=== PATIENT | male | born 1960 | race Hispanic/Latino ===

== ENCOUNTER 2021-07-12 06:07 | Inpatient (IN) | payer SELFPAY ==
[2021-07-12 07:45] LABS: Basophils % (Auto) 0.1 % (0.0-1.8); Hematocrit 22.7 % (35.5-45.6); Hemoglobin 7.9 gm/dl (11.8-15.2); Lymphocytes # (Auto) 4.1 K/mm3 (1.2-5.4); Lymphocytes % (Auto) 23.9 % (13.4-35.0); Mean Corpuscular HGB Conc 35 % (32-34); Mean Corpuscular Volume 98 fl (84-94); Monocytes # (Auto) 1.1 K/mm3 (0.0-0.8); Monocytes % (Auto) 6.4 % (0.0-7.3); Platelet Count 163 K/mm3 (140-440); Red Blood Count 2.31 M/mm3 (3.65-5.03); Red Cell Distribution Width 13.3 % (13.2-15.2)
[2021-07-12 08:35] LABS: Alanine Aminotransferase 34 units/L (7-56); Albumin 3.3 g/dL (3.9-5); BUN/Creatinine Ratio 51; Blood Urea Nitrogen 51 mg/dL (9-20); Calcium 8.6 mg/dL (8.4-10.2); Hemolysis Index 7
[2021-07-12] MEDS ORDERED: SODIUM CHLORIDE 0.9% 1000 ML 1,000 ML IV ONE ×2 (09:44→10:59)
--- NOTE | 2021-07-12 09:51 | Emergency Department Report ---
HPI - General Chief Complaint: Syncope Time Seen by Provider: 07/12/21 09:30 - HPI HPI: This is a 60-year-old male presents to the emergency department with a complaint of 3-4 episodes of passing out that has been going on since Thursday night. The patient says that he thinks he ate some "raw" tuna on Thursday. Thursday he was eating a salad and started to feel very nauseated. Just before the patient vomited he says that he passed out. Since that time he has had recurrent episodes of nausea with vomiting, diarrhea. He denies any chest pain, shortness of breath, headache, vision change, slurred speech, numbness or paresthesias, or any other neurological deficits. Patient denies any past medical history but also admits that he has not had a physical or seen a PCP for about 20 years. ED Past Medical Hx - Past Medical History Previous Medical History?: No - Surgical History Past Surgical History?: No - Social History Smoking Status: Never Smoker Substance Use Type: None ED Review of Systems ROS: Stated complaint: PASSING OUT Other details as noted in HPI Comment: All other systems reviewed and negative Constitutional: denies: chills, fever Eyes: denies: eye pain, vision change ENT: denies: ear pain, throat pain Respiratory: denies: cough, shortness of breath Cardiovascular: syncope. denies: chest pain Gastrointestinal: nausea, vomiting, diarrhea Genitourinary: denies: dysuria, discharge Musculoskeletal: denies: back pain, arthralgia Skin: denies: rash, lesions Neurological: denies: headache, weakness Physical Exam - Physical Exam Vital Signs: Vital Signs 07/12/21 06:14 Temperature 98.4 F Pulse Rate 85 Respiratory 20 Rate Blood Pressure 114/54 O2 Sat by Pulse 98 Oximetry Physical Exam: GENERAL: The patient is well-developed well-nourished. HENT: Normocephalic. Atraumatic. Patient has moist mucous membranes. EYES: Extraocular motions are intact. Pale conjunctiva. Pupils equal reactive to light bilaterally. Fatigable horizontal nystagmus. NECK: Supple. Trachea is midline. CHEST/LUNGS: Clear to auscultation. There is no respiratory distress noted. HEART/CARDIOVASCULAR: Regular. There is no tachycardia. There is no murmur. ABDOMEN: Abdomen is soft, nontender. Patient has normal bowel sounds. There is no abdominal distention. SKIN: Skin is warm and dry. NEURO: The patient is awake, alert, and oriented. The patient is cooperative. The patient has no focal neurologic deficits. Normal speech. Cranial nerves II through XII grossly intact. No facial asymmetry. No pronator drift or dys metria. MUSCULOSKELETAL: There is no tenderness or deformity. There is no limitation range of motion. ED Course Vital Signs 07/12/21 06:14 Temperature 98.4 F Pulse Rate 85 Respiratory 20 Rate Blood Pressure 114/54 O2 Sat by Pulse 98 Oximetry - Consultations Consultation #1: 07/12/21 14:07 The patient was seen in the emergency department by the carrier loader on- call, Dr. Mckeon. He asked for the patient to be started on a Protonix drip and got his endoscopy team to the bedside for an EGD. Patient was found to have a bleeding duodenal ulcer that was cauterized. The plan is for the patient to be admitted to the hospitalist service, PPI drip x48 hours, transfuse as necessary. ED Medical Decision Making - Lab Data Result diagrams: 07/12/21 06:46 07/12/21 06:46 Lab Results 07/12/21 07/12/21 07/12/21 Range/Units 06:46 06:46 06:46 WBC 17.0 H (4.5-11.0) K/mm3 RBC 2.31 L (3.65-5.03) M/mm3 Hgb 7.9 L (11.8-15.2) gm/dl Hct 22.7 L (35.5-45.6) % MCV 98 H (84-94) fl MCH 34 H (28-32) pg MCHC 35 H (32-34) % RDW 13.3 (13.2-15.2) % Plt Count 163 (140-440) K/mm3 Lymph % (Auto) 23.9 (13.4-35.0) % [place] % (Auto) 6.4 (0.0-7.3) % Eos % (Auto) 0.0 (0.0-4.3) % Baso % (Auto) 0.1 (0.0-1.8) % Lymph # (Auto) 4.1 (1.2-5.4) K/mm3 [place] # (Auto) 1.1 H (0.0-0.8) K/mm3 Eos # (Auto) 0.0 (0.0-0.4) K/mm3 Baso # (Auto) 0.0 (0.0-0.1) K/mm3 Seg Neutrophils % 69.6 (40.0-70.0) % Seg Neutrophils # 11.8 H (1.8-7.7) K/mm3 Sodium 141 (137-145) mmol/L Potassium 4.3 (3.6-5.0) mmol/L Chloride 109.3 H (98-107) mmol/L Carbon Dioxide 24 (22-30) mmol/L Anion Gap 12 mmol/L BUN 51 H (9-20) mg/dL Creatinine 1.0 (0.8-1.3) mg/dL Estimated GFR > 60 ml/min BUN/Creatinine Ratio 51 % Glucose 147 H (75-100) mg/dL Calcium 8.6 (8.4-10.2) mg/dL Total Bilirubin 0.30 (0.1-1.2) mg/dL AST 19 (5-40) units/L ALT 34 (7-56) units/L Alkaline Phosphatase 51 (35-129) units/L Troponin T < 0.010 (0.00-0.029) ng/mL Total Protein 5.4 L (6.3-8.2) g/dL Albumin 3.3 L (3.9-5) g/dL Albumin/Globulin Ratio 1.6 % TSH 6.850 H (0.270-4.200) mlU/mL - EKG Data -: EKG Interpreted by Me EKG shows normal: sinus rhythm, axis, intervals, QRS complexes, ST-T waves Rate: normal - EKG Data When compared to previous EKG there are: previous EKG unavailable Interpretation: normal EKG - Radiology Data Radiology results: report reviewed, image reviewed interpreted by me: Chest x-ray does not show any acute process. There are no pleural effusions, obvious pneumonia and there is no pneumothorax. No widened mediastinum. CT head/brain wo con INDICATION / CLINICAL INFORMATION: 60 years Male; Recurrent Syncope. TECHNIQUE: Routine CT head without contrast. All CT scans at this location are performed using CT dose reduction for ALARA by means of automated exposure control. COMPARISON: None. FINDINGS: BRAIN / INTRACRANIAL CONTENTS: The brain appears to demonstrate appropriate attenuation for age. The ventricular system is within normal limits in size and configuration. There is no clear CT evidence of acute intracranial hemorrhage or significant mass effect. ORBITS: No significant abnormality of visualized orbits. SINUSES / MASTOIDS: No significant abnormality in the visualized paranasal sinuses or mastoid air cells. C RANIOCERVICAL JUNCTION: No significant abnormality. ADDITIONAL FINDINGS: None. IMPRESSION: 1. There is no CT evidence of acute intracranial process. - Medical Decision Making This patient presents to the emergency department with complaint of some nausea, vomiting and diarrhea and 3 syncopal episodes over the past 2 days. On examination he does not have any focal, motor or sensory deficits and his cranial nerves are intact. Patient does appear slightly pale. He later admitted to the nurse that he has had some melanotic appearing stool recently. Rectal examination does show melanotic stool that is positive on guaiac testing. Patient's labs shows hemoglobin of 7.9 and elevated BUN. GI contacted and consulted and they did a bedside EGD showing a active duodenal bleed that was subsequently cauterized. Patient is on a PPI drip. He will be admitted to the hospitalist service and was accepted for admission by Dr. Gunter. Critical care attestation.: If time is entered above; I have spent that time in minutes in the direct care of this critically ill patient, excluding procedure time. ED Disposition Clinical Impression: Blood loss anemia, Syncope and collapse, Systemic inflammatory response syndrome GI bleed Qualifiers: GI bleed type/associated pathology: duodenal ulcer Qualified Code(s): K26.4 - Chronic or unspecified duodenal ulcer with hemorrhage Disposition: ADMITTED INPATIENT Is pt being admited?: Yes Condition: Serious Time of Disposition: 14:11
--- NOTE | 2021-07-12 10:15 | Cat Scan Report ---
CT head/brain wo con INDICATION / CLINICAL INFORMATION: 60 years Male; Recurrent Syncope. TECHNIQUE: Routine CT head without contrast. All CT scans at this location are performed using CT dos e reduction for ALARA by means of automated exposure control. COMPARISON: None. FINDINGS: BRAIN / INTRACRANIAL CONTENTS: The brain appears to demonstrate appropriate attenuation for age. The ventricular system is within normal limits in size and configuration. There is no clear CT evidence o f acute intracranial hemorrhage or significant mass effect. ORBITS: No significant abnormality of visualized orbits. SINUSES / MASTOIDS: No significant abnormality in the visualized paranasal sinuses or mastoid air arun ls. CRANIOCERVICAL JUNCTION: No significant abnormality. ADDITIONAL FINDINGS: None. IMPRESSION: 1. There is no CT evidence of acute intracranial process. Signer Name: Dutch Cantrell MD Signed: 07/12/2021 10:10 AM Workstation Name: [id number]
--- NOTE | 2021-07-12 10:43 | XRay Report ---
CHEST 1 VIEW 07/12/2021 10:24 AM INDICATION / CLINICAL INFORMATION: Syncope. Shortness of breath COMPARISON: None available. FINDINGS: SUPPORT DEVICES: None. HEART / MEDIASTINUM: No significant abnormality. LUNGS / PLEURA: No significant pulmonary or pleural abnormality. No pneumothorax. ADDITIONAL FINDINGS: No significant additional findings. IMPRESSION: 1. No acute findings. Signer Name: Jeferson Smith MD Signed: 07/12/2021 10:39 AM Workstation Name: [id number]
[2021-07-12] MEDS ORDERED: EPINEPHrine 1 MG/10 ML SYRINGE ONE (12:48)
[2021-07-12] MEDS ORDERED: PANTOPRAZOLE 40 MG INJ IV ONE (12:52)
[2021-07-12] MEDS ORDERED: propofoL 200 MG/20 ML VIAL IV ONE ×2 (12:58→12:59)
[2021-07-12] MEDS ORDERED: LIDOCAINE MPF (2%) 20 MG/1 ML VIAL 5 ML ONE (12:59)
--- NOTE | 2021-07-12 13:00 | Consultation ---
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 He was in his usual state of good health until 3 days ago when he ate some raw fish and other food at convention in [facility]. He was well until the next day when he went to the bathroom and developed lightheadedness and dizziness and diaphoresis. He started to feel weak and lightheaded. His bowel movements became black though he was still going his usual 2-3 times a day. Yesterday, he flew back from [place] and required a wheelchair to go from the airplane to baggage claim. This morning, he went to the bathroom and after standing up, passed out again. He was brought to the emergency room. He denies nausea or vomiting or abdominal pain. He denies any prior history of GI bleed. He takes a half an aspirin occasionally. Bowel movements occur 2 or 3 times a day and there has been no change other than the melena over the last 2 days. There is no history of weight loss. There is no significant alcohol history. Medications reviewed. Past History Past Surgical History: No surgical history Social history: denies: smoking, alcohol abuse Family history: no significant family history Medications and Allergies Allergies Allergy/AdvReac Type Severity Reaction Status Date / Time No Known Allergies Allergy Unverified 07/12/21 06:24 Active Meds: Active Medications Pantoprazole Sodium 80 mg/ (Sodium Chloride) 100 mls @ 10 mls/hr IV DIRECT ERIBERTO Review of Systems All systems: negative (as per HPI) Exam - Constitutional Vitals: Temp Pulse Resp BP Pulse Ox 98.4 F 85 20 114/54 98 07/12/21 06:14 07/12/21 06:14 07/12/21 06:14 07/12/21 06:14 07/12/21 06:14 General appearance: Present: no acute distress - EENT Eyes: Present: PERRL, EOM intact ENT: hearing intact - Respiratory Respiratory effort: normal Respiratory: bilateral: CTA - Cardiovascular Rhythm: regular Heart Sounds: Present: S1 & S2 - Extremities Extremities: No edema - Abdominal General gastrointestinal: Present: soft, non-tender - Rectal Rectal Exam: other (Black stool per ER MD) Results - Labs CBC & Chem 7: 07/12/21 06:46 07/12/21 06:46 Labs: Abnormal lab results 07/12/21 07/12/21 07/12/21 Range/Units 06:46 06:46 06:46 WBC 17.0 H (4.5-11.0) K/mm3 RBC 2.31 L (3.65-5.03) M/mm3 Hgb 7.9 L (11.8-15.2) gm/dl Hct 22.7 L (35.5-45.6) % MCV 98 H (84-94) fl MCH 34 H (28-32) pg MCHC 35 H (32-34) % [place] # (Auto) 1.1 H (0.0-0.8) K/mm3 Seg Neutrophils # 11.8 H (1.8-7.7) K/mm3 Chloride 109.3 H (98-107) mmol/L BUN 51 H (9-20) mg/dL Glucose 147 H (75-100) mg/dL Total Protein 5.4 L (6.3-8.2) g/dL Albumin 3.3 L (3.9-5) g/dL TSH 6.850 H (0.270-4.200) mlU/mL Assessment and Plan 1. Anemia/melena -with syncope. Findings consistent with acute blood loss anemia and hypovolemia with orthostatic syncope. Differential diagnosis consists of upper GI bleed, likely from peptic ulcer disease. Other considerations are mass lesion. Portal hypertension is unlikely. Small bowel or colonic bleed are possible but less likely. -PPI drip -Monitor hemoglobin and transfuse as needed -Urgent upper endoscopy for diagnosis and treatment -Further recommendations pending outcome of endoscopy
[2021-07-12] MEDS ORDERED: oxyCODONE /ACETAMINOPHEN 5-325MG TAB PO PRN (13:02)
[2021-07-12] MEDS ORDERED: ONDANSETRON 4 MG/2 ML INJ IV PRN (13:02)
[2021-07-12] MEDS ORDERED: ALBUTEROL 2.5 MG/3 ML NEBU IH PRN (13:02)
[2021-07-12] MEDS ORDERED: ACETAMINOPHEN 325 MG TAB PO PRN (13:02)
[2021-07-12] MEDS ORDERED: HYDROmorphone 1 MG/1 ML INJ IV PRN (13:02)
--- NOTE | 2021-07-12 13:32 | History and Physical Report ---
History of Present Illness Date of admission: 07/12/21 13:02 Chief complaint: I have been feeling weak and lightheaded History of present illness: 60 YO Male with No PMH presents to ED for evaluation. Patient reports "I feel weak and lightheaded. Patient states that he was in his usual state of health but began experiencing generalized weakness, nausea, multiple episodes of vomiting, loose stools after ingestion of raw tuna on Thursday. Patient also report 2-3 dark bowel movements over the past 1 day. Patient also reports worsening dizziness resulting in three episodes of loss of consciousness over the past 1 day. Patient transported to [facility] via private vehicle for further care and evaluation of the aforementioned symptoms. The patient was seen and evaluated in the emergency department. All lab and imaging studies reviewed. Patient found to be Hemoccult positive in the emergency department with clinical symptoms consistent with GI bleed complicated by blood loss anemia as well as syncope. GI team consulted in ED. Patient admitted to telemetry floor for further care and evaluation due to increased risk of worsening sepsis. Patient denies fever, chills, chest pain, palpitation, productive cough, skin rash, recent contact, or known exposure to COVID-19. No prior admission for review. No medication listed at time of admission reconciliation. Advanced care planning conducted in ED. Past History Past Medical History: No medical history Past Surgical History: No surgical history Social history: . denies: smoking, alcohol abuse Family history: no significant family history Medications and Allergies Allergies Allergy/AdvReac Type Severity Reaction Status Date / Time No Known Allergies Allergy Unverified 07/12/21 06:24 Active Meds: Active Medications Acetaminophen (Acetaminophen 325 Mg Tab) 650 mg PO Q4H PRN PRN Reason: Pain MILD(1-3)/Fever >100.5/[place] Albuterol (Albuterol 2.5 Mg/3 Ml Nebu) 2.5 mg IH Q4HRT PRN PRN Reason: Shortness Of Breath Hydromorphone HCl (Hydromorphone 1 Mg/1 Ml Inj) 0.5 mg IV Q12H PRN PRN Reason: Pain , Severe (7-10) Pantoprazole Sodium 80 mg/ (Sodium Chloride) 100 mls @ 10 mls/hr IV DIRECT ERIBERTO Ondansetron HCl (Ondansetron 4 Mg/2 Ml Inj) 4 mg IV Q8H PRN PRN Reason: Nausea And Vomiting Oxycodone/Acetaminophen (Oxycodone /Acetaminophen 5-325mg Tab) 1 tab PO Q12H PRN PRN Reason: Pain, Moderate (4-6) Sodium Chloride (Sodium Chloride 0.9% 10 Ml Flush Syringe) 10 ml IV BID ERIBERTO Sodium Chloride (Sodium Chloride 0.9% 10 Ml Flush Syringe) 10 ml IV PRN PRN PRN Reason: LINE FLUSH Review of Systems Constitutional: fatigue, weakness, malaise, no weight loss, no weight gain, no fever, no chills Ears, nose, mouth and throat: no ear pain, no tinnitis, no nose pain, no nasal congestion, no nasal discharge Cardiovascular: syncope, no chest pain, no orthopnea, no rapid/irregular heart beat, no edema Respiratory: no cough, no cough with sputum, no shortness of breath Gastrointestinal: nausea, vomiting, melena, no change in bowel habits, no hematemesis, no loss of appetite Genitourinary Male: no hematuria, no flank pain, no discharge, no urinary frequency Rectal: no pain, no incontinence, no bleeding Musculoskeletal: no neck stiffness, no neck pain, no arm numbness/tingling, no low back pain, no shooting leg pain, no leg numbness/tingling Integumentary: no rash, no pruritis, no redness, no sores, no wounds, no jaundice Neurological: no head injury, no transient paralysis, no weakness, no parathesias, no numbness, no tingling, no seizures, no tremors Psychiatric: no anxiety, no change in sleep habits, no insomnia, no hypersomnia, no change in appetite, no change in libido Endocrine: no cold intolerance, no heat intolerance, no polyphagia, no excessive thirst, no polydipsia, no nocturia, no excessive sweating Hematologic/Lymphatic: no easy bruising, no easy bleeding Allergic/Immunologic: no urticaria, no allergic rhinitis Exam - Constitutional Vitals: Temp Pulse Resp BP Pulse Ox 98.1 F 106 H 20 117/36 98 07/12/21 12:54 07/12/21 12:54 07/12/21 12:54 07/12/21 12:54 07/12/21 12:54 General appearance: Present: mild distress - EENT Eyes: Present: PERRL (Conjunctival pallor) ENT: hearing intact, clear oral mucosa - Neck Neck: Present: supple, normal ROM - Respiratory Respiratory effort: normal Respiratory: bilateral: CTA - Cardiovascular Heart Sounds: Present: S1 & S2. Absent: rub, click - Extremities Extremities: pulses symmetrical, No edema Peripheral Pulses: within normal limits - Abdominal General gastrointestinal: Present: soft, non-tender, non-distended, normal bowel sounds Male genitourinary: Present: normal - Integumentary Integumentary: Present: clear, warm, dry - Musculoskeletal Musculoskeletal: gait normal, strength equal bilaterally - Psychiatric Psychiatric: appropriate mood/affect, intact judgment & insight - Neurologic Neurologic: CNII-XII intact, moves all extremities HEART Score - HEART Score Troponin: Troponin T < 0.010 ng/mL (0.00-0.029) 07/12/21 06:46 Results - Labs CBC & Chem 7: 07/12/21 06:46 07/12/21 06:46 Labs: Abnormal lab results 07/12/21 07/12/21 07/12/21 Range/Units 06:46 06:46 06:46 WBC 17.0 H (4.5-11.0) K/mm3 RBC 2.31 L (3.65-5.03) M/mm3 Hgb 7.9 L (11.8-15.2) gm/dl Hct 22.7 L (35.5-45.6) % MCV 98 H (84-94) fl MCH 34 H (28-32) pg MCHC 35 H (32-34) % [place] # (Auto) 1.1 H (0.0-0.8) K/mm3 Seg Neutrophils # 11.8 H (1.8-7.7) K/mm3 Chloride 109.3 H (98-107) mmol/L BUN 51 H (9-20) mg/dL Glucose 147 H (75-100) mg/dL Total Protein 5.4 L (6.3-8.2) g/dL Albumin 3.3 L (3.9-5) g/dL TSH 6.850 H (0.270-4.200) mlU/mL Assessment and Plan - Patient Problems (1) GI bleed Current Visit: Yes Status: Acute Plan to address problem: GI bleed protocol: GI team consulted in ED. Patient pending endoscopic evaluation as per GI team, PPI therapy, supportive care, bowel rest, (2) Systemic inflammatory response syndrome Current Visit: Yes Status: Acute Plan to address problem: CBC, CMP, empiric IV antibiotic therapy, supportive care. Patient is pending endoscopic evaluation for clarification of source of inflammatory response. (3) Blood loss anemia Current Visit: Yes Status: Acute Plan to address problem: CBC, packed red blood cell transfusion, repeat CBC in a.m. (4) Syncope and collapse Current Visit: Yes Status: Acute Plan to address problem: CT head, neuro check, supportive care, (5) DVT prophylaxis Current Visit: Yes Status: Acute Plan to address problem: SCD to bilateral lower extremities while in bed, patient is ambulatory. (6) Advance care planning Current Visit: Yes Status: Acute Plan to address problem: Disease education conducted, care plan discussed, diagnoses discussed, patient is full code, patient acknowledges understanding agreement care plan, +30 minutes.
--- NOTE | 2021-07-12 13:56 | Post Operative Note ---
Pre-op diagnosis: GI bleed Post-op diagnosis: other (Duodenal ulcer with visible vessel.) Findings: 1. Normal esophagus 2. Normal stomach, with some fresh blood and red clot in it, cleared. 3. 1 cm ulcer in descending duodenum, just past apex of bulb, with visible vessel and fresh blood. 1.5 ml Epi injected in 0.5 ml aliquots. Vessel ablated with GoldProbe. 1 clip placed along inferior 1/3rd of ulcer. No bleeding at end of procedure. Procedure: EGD with Epi injection, GoldProbe cautery, and clip placement Anesthesia: MAC Surgeon: TRISTON QUIÑONEZ Estimated blood loss: minimal Pathology: none Condition: stable Disposition: other (Monitored bed, IV PPI drip x 48 hrs, NPO, monitor Hgb and transfuse as needed. Discussed with pt , Marie Ashton.)
[2021-07-12] MEDS ORDERED: SODIUM CHLORIDE 0.9% 500 ML 500 ML IV SCH (14:00)
--- NOTE | 2021-07-12 14:34 | Operative Report ---
DATE OF SURGERY: 07/12/2021 UPPER ENDOSCOPY REPORT PREOPERATIVE DIAGNOSIS: Gastrointestinal bleed. POSTOPERATIVE DIAGNOSIS: Duodenal bulb ulcer. PROCEDURES: Upper endoscopy with epinephrine injection, GOLD Probe cautery, and clip placement. SEDATION: MAC by anesthesia. HISTORY: The patient is a 60-year-old man who presented with melena times 2 days and syncope. He had a hemoglobin of 7.9. DESCRIPTION OF PROCEDURE: The procedure, indications, risks, and benefits were explained and consent was obtained. The patient was placed in left lateral decubitus position and sedated. Olympus endoscope was passed through the mouth and oropharynx into the descending duodenum and then gradually withdrawn with close inspection of mucosa. FINDINGS: 1. Normal-appearing esophagus with sharp Z line located at 43 cm from the incisors. 2. Normal appearing gastric antrum, fundus, body and cardia with some fresh blood and fresh red clot noted within it that were aspirated clear. 3. In the duodenal bulb, there was some fresh red blood, but otherwise it was normal. 4. Just past the apex of the bulb and the descending duodenum, a 1 cm deep white fibrinous based ulcer was noted with a visible vessel and fresh red blood on it. Epinephrine at 0.5 mL aliquots was injected in and around the ulcer for a total of 1.5 mL. Gold Probe was used to cauterize and ablate the visible vessel in the ulcer. Then, a clip was placed at the distal aspect of the ulcer to approximate closure of the inferior portion of the ulcer. There was no bleeding at the end of the procedure. 5. Remainder of duodenum is normal. The patient tolerated the procedure well without immediate complication. IMPRESSION: 1. Duodenal ulcer with visible vessel -- treated with cautery and epinephrine and clip placement with hemostasis achieved. 2. Otherwise, normal endoscopy. RECOMMENDATIONS: 1. IV Protonix drip. 2. Monitor hemoglobin and transfuse as needed. 3. May initiate clear liquids tomorrow if he does well. TID: [id number] RECEIPT: [id number] [facility]/JOSE
[2021-07-12] MEDS: PANTOPRAZOLE 80 MG in SODIUM CHLORIDE 0.9% 100 ML IV SCH (14:36)
[2021-07-12] MEDS: metroNIDAZOLE/NS 500 MG/100 ML 500 MG/100 ML BAG IV SCH ×2 (15:03→22:00)
--- NOTE | 2021-07-12 15:06 | Anesthesia Consultation ---
Anesthesia Consult and Med Hx Date of service: 07/12/21 - Airway Anesthetic Teeth Evaluation: Good ROM Head & Neck: Adequate Mental/Hyoid Distance: Adequate Mallampati Class: Class II Intubation Access Assessment: Good - Pulmonary Exam CTA: Yes - Cardiac Exam Cardiac Exam: RRR - Pre-Operative Health Status ASA Pre-Surgery Classification: ASA2, Emergency Proposed Anesthetic Plan: MAC - Hematic Hx Anemia: Yes
--- NOTE | 2021-07-12 15:06 | Anesthesia Day of Surgery ---
Anesthesia Day of Surgery - Day of Surgery Patient Examined: Yes Patient H&P Reviewed: Yes Patient is NPO: Yes
--- NOTE | 2021-07-12 15:07 | Post Anesthesia Evaluation ---
- Post Anesthesia Evaluation Patient Participated: Yes Airway Patent: Yes Stable Respiratory Function: Yes Nausea/Vomiting: No Temp > 96.8F: Yes Pain Manageable: Yes Adequeate Hydration: Yes Anesthesia Complications: No
[2021-07-13] MEDS: PANTOPRAZOLE 80 MG in SODIUM CHLORIDE 0.9% 100 ML IV SCH ×2 (01:24→14:04)
[2021-07-13] MEDS ORDERED: SODIUM CHLORIDE 0.9% 500 ML 500 ML ONE (03:36)
[2021-07-13] MEDS: metroNIDAZOLE/NS 500 MG/100 ML 500 MG/100 ML BAG IV SCH ×3 (06:54→23:18)
--- NOTE | 2021-07-13 08:53 | Discharge Summary ---
Providers - Providers Date of Admission: 07/12/21 13:48 Date of discharge: 07/14/21 Attending physician: KANG GUAN 07/12/21 13:03 Consult to Physician [CONS] Routine Comment: Consulting Provider: TRISTON QUIÑONEZ Physician Instructions: Reason For Exam: Upper GI Bleed Primary care physician: [employer]ING [employer]TER Hospitalization Reason for admission: Syncope, melena Condition: Serious Hospital course: 60-year-old male with no significant past medical history was admitted with diagnosis of acute blood loss anemia and hypovolemia with orthostatic syncope. Differential diagnosis consists of upper GI bleed, likely from peptic ulcer disease. The patient was treated with PPI drip. The patient was seen by GI in consultation and underwent urgent upper endoscopy which revealed normal esophagus, normal stomach with some fresh blood and red clot. Also, patient was noted to have 1 cm ulcer in descending duodenum, just past apex of bulb, with visible vessel and fresh blood. 1.5 ml Epi injected in 0.5 ml aliquots. Vessel ablated with GoldProbe. 1 clip placed along inferior 1/3rd of ulcer. No blee ding at end of procedure. Patient received 2 units of PRBCs. If H&H remains stable will likely discharge today if okay with GI. Dedicated discharge time 35 minutes Disposition: 01 HOME / SELF CARE / HOMELESS Final Discharge Diagnosis (Prints w/discharge instructions): Syncope, acute blood loss anemia, hypovolemia, orthostatic syncope, duodenal ulcer Core Measure Documentation - Palliative Care Palliative Care/ Comfort Measures: Not Applicable - Core Measures Any of the following diagnoses?: none Exam - Constitutional Vitals: Temp Pulse Resp BP Pulse Ox 98.3 F 51 L 18 103/45 97 07/13/21 07:56 07/13/21 07:56 07/13/21 07:56 07/13/21 07:56 07/13/21 07:56 General appearance: Present: no acute distress, well-nourished - EENT Eyes: Present: PERRL ENT: hearing intact, clear oral mucosa - Neck Neck: Present: supple, normal ROM - Respiratory Respiratory effort: normal Respiratory: bilateral: CTA - Cardiovascular Heart Sounds: Present: S1 & S2. Absent: rub, click - Extremities Extremities: pulses symmetrical, No edema Peripheral Pulses: within normal limits - Abdominal General gastrointestinal: Present: soft, non-tender, non-distended, normal bowel sounds Male genitourinary: Present: normal - Integumentary Integumentary: Present: clear, warm, dry - Musculoskeletal Musculoskeletal: gait normal, strength equal bilaterally - Psychiatric Psychiatric: appropriate mood/affect, intact judgment & insight - Neurologic Neurologic: CNII-XII intact, moves all extremities Plan Activity: advance as tolerated Weight Bearing Status: Weight Bear as Tolerated Diet: regular Follow up with: PRIMARY CARE, [Primary Care Provider] - 3-5 Days TRISTON QUIÑONEZ MD [Staff Physician] - 7 Days Prescriptions: Pantoprazole [Protonix] 40 mg PO BID #60 tablet
[2021-07-13 11:42] LABS: Basophils % (Auto) 0.2 % (0.0-1.8); Eosinophils % (Auto) 0.3 % (0.0-4.3); Hematocrit 22.9 % (35.5-45.6); Hemoglobin 8.1 gm/dl (11.8-15.2); Lymphocytes # (Auto) 3.6 K/mm3 (1.2-5.4); Lymphocytes % (Auto) 32.8 % (13.4-35.0); Mean Corpuscular HGB Conc 36 % (32-34); Mean Corpuscular Volume 97 fl (84-94); Monocytes # (Auto) 0.7 K/mm3 (0.0-0.8); Monocytes % (Auto) 6.7 % (0.0-7.3); Platelet Count 103 K/mm3 (140-440); Red Blood Count 2.36 M/mm3 (3.65-5.03); Red Cell Distribution Width 14.1 % (13.2-15.2)
[2021-07-13 11:57] LABS: Alanine Aminotransferase 25 units/L (7-56); Albumin 2.8 g/dL (3.9-5); BUN/Creatinine Ratio 32; Blood Urea Nitrogen 32 mg/dL (9-20); Calcium 8.1 mg/dL (8.4-10.2); Hemolysis Index 2
--- NOTE | 2021-07-13 12:34 | Gastroenterology Progress Note ---
Assessment and Plan # GI bleed # Duodenal ulcer - EGD on 07/12/2021 Findings: 1. Normal esophagus 2. Normal stomach, with some fresh blood and red clot in it, cleared. 3. 1 cm ulcer in descending duodenum, just past apex of bulb, with visible vessel and fresh blood. 1.5 ml Epi injected in 0.5 ml aliquots. Vessel ablated with GoldProbe. 1 clip placed along inferior 1/3rd of ulcer. No bleeding at end of procedure. - no signs of active recurrent bleeding. - H/H stable. Rec - cont with PPI and transition to PO bid dosing tomorrow. - monitor for signs of recurrent bleeding. In case of recurrent bleeding, recommend IR/vascular consult for embolization. - clear liquid diet today and advance as tolerated. - monitor today and if stable without bleeding, ok for discharge tomorrow per GI standpoint. - will need 6 weeks of PO PPI bid. - avoid NSAIDs - Patient Problems (1) Blood loss anemia Current Visit: Yes Status: Acute (2) GI bleed Current Visit: Yes Status: Acute Qualifiers: GI bleed type/associated pathology: duodenal ulcer Qualified Code(s): K26.4 - Chronic or unspecified duodenal ulcer with hemorrhage Subjective Date of service: 07/13/21 Interval history: Patient underwent EGD on 07/12/2021 showing duodenal ulcer with active bleeding controlled. No BM overnight. No abdominal pain. Objective - Constitutional Vitals: Temp Pulse Resp BP Pulse Ox 98.4 F 54 L 18 109/52 98 07/13/21 10:52 07/13/21 10:52 07/13/21 10:52 07/13/21 10:52 07/13/21 10:52 General appearance: no acute distress - EENT Eyes: EOM intact ENT: hearing intact - Respiratory Respiratory effort: normal - Cardiovascular Rhythm: regular Heart Sounds: Present: S1 & S2 - Gastrointestinal General gastrointestinal: Present: soft, non-tender, non-distended - Integumentary Integumentary: Present: clear, warm - Neurologic Neurological: alert and oriented x3 - Labs CBC & Chem 7: 07/13/21 11:07 07/13/21 11:07 Labs: Laboratory Results - last 24 hr 07/12/21 07/13/21 07/13/21 14:10 11:07 11:07 WBC 10.9 RBC 2.36 L Hgb 8.1 L Hct 22.9 L MCV 97 H MCH 34 H MCHC 36 H RDW 14.1 Plt Count 103 L Lymph % (Auto) 32.8 Iron % (Auto) 6.7 Eos % (Auto) 0.3 Baso % (Auto) 0.2 Lymph # (Auto) 3.6 Iron # (Auto) 0.7 Eos # (Auto) 0.0 Baso # (Auto) 0.0 Seg Neutrophils % 60.0 Seg Neutrophils # 6.6 Sodium 145 Potassium 4.2 Chloride 113.4 H Carbon Dioxide 27 Anion Gap 9 BUN 32 H Creatinine 1.0 Estimated GFR > 60 BUN/Creatinine Ratio 32 Glucose 111 H Calcium 8.1 L Total Bilirubin 0.30 AST 15 ALT 25 Alkaline Phosphatase 42 Total Protein 4.3 L D Albumin 2.8 L Albumin/Globulin Ratio 1.9 Blood Type A POSITIVE Antibody Screen Negative Crossmatch See Detail
[2021-07-14] MEDS: PANTOPRAZOLE 80 MG in SODIUM CHLORIDE 0.9% 100 ML IV SCH (02:40)
--- NOTE | 2021-07-14 09:09 | Progress Note ---
Assessment and Plan Assessment and plan: GI bleed Duodenal ulcer 07/13/2021. EGD revealed normal esophagus, normal stomach with some fresh blood and red clot in it, cleared. 3. 1 cm ulcer in descending duodenum, just past apex of bulb, with visible vessel and fresh blood. 1.5 ml Epi injected in 0.5 ml aliquots. Vessel ablated with GoldProbe. 1 clip placed along inferior 1/3rd of ulcer. No bleeding at end of procedure. - no signs of active recurrent bleeding. - H/H stable. GI recommendations - cont with PPI and transition to PO bid dosing tomorrow. - monitor for signs of recurrent bleeding. In case of recurrent bleeding, recomm end IR/vascular consult for embolization. - clear liquid diet today and advance as tolerated. - monitor today and if stable without bleeding, ok for discharge tomorrow per GI standpoint. - will need 6 weeks of PO PPI bid. - avoid NSAIDs History Interval history: No new issues overnight. Hospitalist Physical - Constitutional Vitals: Temp Pulse Resp BP Pulse Ox 97.9 F 55 L 18 114/60 97 07/14/21 07:24 07/14/21 07:24 07/14/21 07:24 07/14/21 07:24 07/14/21 07:24 General appearance: Present: no acute distress, well-nourished - EENT Eyes: Present: PERRL, EOM intact ENT: hearing intact, clear oral mucosa, dentition normal - Neck Neck: Present: supple, normal ROM - Respiratory Respiratory effort: normal Respiratory: bilateral: CTA - Cardiovascular Rhythm: regular Heart Sounds: Present: S1 & S2. Absent: gallop, rub - Extremities Extremities: no ischemia, No edema, Full ROM - Abdominal General gastrointestinal: soft, non-tender, non-distended, normal bowel sounds - Integumentary Integumentary: Present: clear, warm, dry - Neurologic Neurologic: CNII-XII intact, moves all extremities HEART Score - HEART Score Troponin: Troponin T < 0.010 ng/mL (0.00-0.029) 07/12/21 06:46 Results - Labs CBC & Chem 7: 07/13/21 11:07 07/13/21 11:07 Labs: Laboratory Last Values WBC 10.9 K/mm3 (4.5-11.0) 07/13/21 11:07 RBC 2.36 M/mm3 (3.65-5.03) L 07/13/21 11:07 Hgb 8.1 gm/dl (11.8-15.2) L 07/13/21 11:07 Hct 22.9 % (35.5-45.6) L 07/13/21 11:07 MCV 97 fl (84-94) H 07/13/21 11:07 MCH 34 pg (28-32) H 07/13/21 11:07 MCHC 36 % (32-34) H 07/13/21 11:07 RDW 14.1 % (13.2-15.2) 07/13/21 11:07 Plt Count 103 K/mm3 (140-440) L 07/13/21 11:07 Lymph % (Auto) 32.8 % (13.4-35.0) 07/13/21 11:07 [place] % (Auto) 6.7 % (0.0-7.3) 07/13/21 11:07 Eos % (Auto) 0.3 % (0.0-4.3) 07/13/21 11:07 Baso % (Auto) 0.2 % (0.0-1.8) 07/13/21 11:07 Lymph # (Auto) 3.6 K/mm3 (1.2-5.4) 07/13/21 11:07 [place] # (Auto) 0.7 K/mm3 (0.0-0.8) 07/13/21 11:07 Eos # (Auto) 0.0 K/mm3 (0.0-0.4) 07/13/21 11:07 Baso # (Auto) 0.0 K/mm3 (0.0-0.1) 07/13/21 11:07 Seg Neutrophils % 60.0 % (40.0-70.0) 07/13/21 11:07 Seg Neutrophils # 6.6 K/mm3 (1.8-7.7) 07/13/21 11:07 Sodium 145 mmol/L (137-145) 07/13/21 11:07 Potassium 4.2 mmol/L (3.6-5.0) 07/13/21 11:07 Chloride 113.4 mmol/L (98-107) H 07/13/21 11:07 Carbon Dioxide 27 mmol/L (22-30) 07/13/21 11:07 Anion Gap 9 mmol/L 07/13/21 11:07 BUN 32 mg/dL (9-20) H 07/13/21 11:07 Creatinine 1.0 mg/dL (0.8-1.3) 07/13/21 11:07 Estimated GFR > 60 ml/min 07/13/21 11:07 BUN/Creatinine Ratio 32 % 07/13/21 11:07 Glucose 111 mg/dL (75-100) H 07/13/21 11:07 Calcium 8.1 mg/dL (8.4-10.2) L 07/13/21 11:07 Total Bilirubin 0.30 mg/dL (0.1-1.2) 07/13/21 11:07 AST 15 units/L (5-40) 07/13/21 11:07 ALT 25 units/L (7-56) 07/13/21 11:07 Alkaline Phosphatase 42 units/L (35-129) 07/13/21 11:07 Troponin T < 0.010 ng/mL (0.00-0.029) 07/12/21 06:46 Total Protein 4.3 g/dL (6.3-8.2) L D 07/13/21 11:07 Albumin 2.8 g/dL (3.9-5) L 07/13/21 11:07 Albumin/Globulin Ratio 1.9 % 07/13/21 11:07 TSH 6.850 mlU/mL (0.270-4.200) H 07/12/21 06:46 Blood Type A POSITIVE 07/12/21 14:10 Antibody Screen Negative 07/12/21 14:10 Crossmatch See Detail 07/12/21 14:10 Damon/IV: Voiding Method Toilet Active Medications - Current Medications Current Medications: Generic Name Dose Route Start Last Admin Trade Name Freq PRN Reason Stop Dose Admin Acetaminophen 650 mg 07/12/21 13:02 Acetaminophen 325 Mg Tab PO Q4H PRN Pain MILD(1-3)/Fever >100.5/NORMAN Albuterol 2.5 mg 07/12/21 13:02 Albuterol 2.5 Mg/3 Ml Nebu IH Q4HRT PRN Shortness Of Breath Hydromorphone HCl 0.5 mg 07/12/21 13:02 Hydromorphone 1 Mg/1 Ml Inj IV Q12H PRN Pain , Severe (7-10) Pantoprazole Sodium 80 mg/ 100 mls @ 10 mls/hr 07/12/21 13:00 07/14/21 02:40 Sodium Chloride IV 8 mg/hr DIRECT ERIBERTO 10 mls/hr Administration 8 MG/HR Ondansetron HCl 4 mg 07/12/21 13:02 Ondansetron 4 Mg/2 Ml Inj IV Q8H PRN Nausea And Vomiting Oxycodone/Acetaminophen 1 tab 07/12/21 13:02 07/12/21 14:35 Oxycodone /Acetaminophen 5-325mg Tab PO 1 tab Q12H PRN Administration Pain, Moderate (4-6) Sodium Chloride 10 ml 07/12/21 22:00 07/13/21 23:18 Sodium Chloride 0.9% 10 Ml Flush Syringe IV 10 ml BID ERIBERTO Administration Sodium Chloride 10 ml 07/12/21 13:02 Sodium Chloride 0.9% 10 Ml Flush Syringe IV PRN PRN LINE FLUSH
[2021-07-14 10:50] LABS: Basophils % (Auto) 0.3 % (0.0-1.8); Eosinophils # (Auto) 0.1 K/mm3 (0.0-0.4); Eosinophils % (Auto) 1.5 % (0.0-4.3); Hematocrit 22.1 % (35.5-45.6); Hemoglobin 7.8 gm/dl (11.8-15.2); Lymphocytes # (Auto) 2.3 K/mm3 (1.2-5.4); Lymphocytes % (Auto) 25.2 % (13.4-35.0); Mean Corpuscular HGB Conc 35 % (32-34); Mean Corpuscular Volume 98 fl (84-94); Monocytes # (Auto) 0.6 K/mm3 (0.0-0.8); Monocytes % (Auto) 6.9 % (0.0-7.3); Platelet Count 119 K/mm3 (140-440); Red Blood Count 2.25 M/mm3 (3.65-5.03); Red Cell Distribution Width 14.2 % (13.2-15.2)
[2021-07-14 12:09] VITALS: BP 110/58
--- NOTE | 2021-07-14 12:35 | Gastroenterology Progress Note ---
Assessment and Plan # GI bleed # Duodenal ulcer - EGD on 07/12/2021 Findings: 1. Normal esophagus 2. Normal stomach, with some fresh blood and red clot in it, cleared. 3. 1 cm ulcer in descending duodenum, just past apex of bulb, with visible vessel and fresh blood. 1.5 ml Epi injected in 0.5 ml aliquots. Vessel ablated with GoldProbe. 1 clip placed along inferior 1/3rd of ulcer. No bleeding at end of procedure. - no signs of active recurrent bleeding. - H/H stable. Rec - ok for discharge per GI standpoint on protonix 40 mg bid PO dosing for at least 6-8 weeks. - follow up in GI clinic post discharge. - avoid NSAIDs - Patient Problems (1) Blood loss anemia Current Visit: Yes Status: Acute (2) GI bleed Current Visit: Yes Status: Acute Qualifiers: GI bleed type/associated pathology: duodenal ulcer Qualified Code(s): K26.4 - Chronic or unspecified duodenal ulcer with hemorrhage Subjective Date of service: 07/14/21 Interval history: no abdominal pain, nausea/vomiting. No BM overnight. Tolerating diet. Objective - Constitutional Vitals: Temp Pulse Resp BP Pulse Ox 98.2 F 56 L 18 110/58 98 07/14/21 12:08 07/14/21 12:08 07/14/21 12:08 07/14/21 12:08 07/14/21 12:08 General appearance: no acute distress - EENT Eyes: PERRL, EOM intact ENT: hearing intact - Respiratory Respiratory effort: normal - Cardiovascular Rhythm: regular Heart Sounds: Present: S1 & S2 - Gastrointestinal General gastrointestinal: Present: soft, non-tender, non-distended - Integumentary Integumentary: Present: clear, warm - Neurologic Neurological: alert and oriented x3 - Labs CBC & Chem 7: 07/14/21 09:47 07/13/21 11:07 Labs: Laboratory Results - last 24 hr 07/14/21 09:47 WBC 9.2 RBC 2.25 L Hgb 7.8 L Hct 22.1 L MCV 98 H MCH 35 H MCHC 35 H RDW 14.2 Plt Count 119 L Lymph % (Auto) 25.2 [place] % (Auto) 6.9 Eos % (Auto) 1.5 Baso % (Auto) 0.3 Lymph # (Auto) 2.3 [place] # (Auto) 0.6 Eos # (Auto) 0.1 Baso # (Auto) 0.0 Seg Neutrophils % 66.1 Seg Neutrophils # 6.1
--- NOTE | 2021-07-15 14:04 | Electrocardiograph Report ---
[facility] Test Date: 2021-07-12 Test Time: 06:20:33 Pat Name: MARAL ODONNELL Department: Room: A456 Gender: M [employer] Administrator: RAMO : 1960 Requested By: ED DOC Order Number: [id number] Reading MD: Shayla Enriquez Measurements Intervals Qulin Rate: 62 P: 83 WV: 151 QRS: 61 QRSD: 100 T: -17 QT: 395 QTc: 401 Interpretive Statements Sinus rhythm Nonspecific ST segment abnormality No previous ECG available for comparison Electronically Signed On 07-15-2021 14:04:15 EDT by Shayla Enriquez
== END 2021-07-14 14:30 | disposition home or self-care (01) | DRG 378 ==
LOC: ED 06:07 → 4A 13:02 → OBSVTOIN 13:48 → 4A 22:08
PROVIDERS: ADMIT Internal Medicine; ATTEND Hospitalist
PROC: 30233N1 Transfusion of Nonautologous Red Blood Cells into Peripheral Vein, Percutaneous Approach (ICD-10-PCS; principal; 2021-07-12)
PROC: 0W3P8ZZ Control Bleeding in Gastrointestinal Tract, Via Natural or Artificial Opening Endoscopic (ICD-10-PCS; 2021-07-12)
DX: K26.4 Chronic or unspecified duodenal ulcer with hemorrhage (principal); R65.10 Systemic inflammatory response syndrome (SIRS) of non-infectious origin without acute organ dysfunction; D62 Acute posthemorrhagic anemia; E86.1 Hypovolemia
CPT/HCPCS: 36415; 70450; 71045; 80053; 82271; 84443; 84484; 85025; 86850; 86900; 86901; 86920; 93005; G0378; C9113; J0171; J2704; J7030; J7040; P9016